=== PATIENT | female | born 1965 | race Caucasian/White ===

== ENCOUNTER 2023-10-06 07:35 | Day surgery (SDC) | payer OTHER, SELFPAY ==
[2023-09-10 13:20] VITALS: BMI 29.4
[2023-09-10 13:26] LABS: % Basophils 0.9 % (0-2); % Eosinophils 3.2 % (0-6); % Immature Granulocytes 0.2 % (0-0.5); % Lymphocytes 44.3 % (20.5-51.1); % Monocytes 7.1 % (1.7-9.3); % Neutrophils 44.3 % (42.2-75.2); Absolute Basophils 0.1 10^3/uL (0-0.2); Absolute Eosinophils 0.2 10^3/uL (0-0.7); Absolute Lymphocytes 2.5 10^3/uL (1.2-3.4); Absolute Monocytes 0.4 10^3/uL (0.1-0.6); Absolute Neutrophils 2.5 10^3/uL (1.4-6.5); Hematocrit 41.8 % (37.0-47.0); Hemoglobin 14.7 g/dL (12.0-16.0); Mean Corp Hgb Conc. 35.2 g/dL (33.0-37.0); Mean Corpuscular Hgb 28.5 pg (27.0-31.0); Mean Platelet Volume 10.9 fL (7.4-10.4); Nucleated Red Blood Cells % 0 %; Platelet Count 213 10^3/uL (130-400); Red Blood Cell Count 5.16 10^6/uL (4.20-5.40); Red Cell Dist. Width 13.7 % (11.5-14.5); White Blood Cell Count 5.6 10^3/uL (4.8-10.8)
[2023-09-10 13:38] LABS: ALT (SGPT) 26 U/L (0-35); AST (SGOT) 29 U/L (14-36); Albumin 4.4 g/dl (3.5-5.0); Alkaline Phosphatase 82 U/L (38-126); Blood Urea Nitrogen 18 mg/dl (7-17); Calcium 10.1 mg/dl (8.4-10.2); Carbon Dioxide 25 mmol/L (22-30); Chloride 102 mmol/L (98-107); Estimated Creatinine Clearance 71 ml/min; Glucose 164 mg/dl (70-99); Magnesium 1.6 mg/dl (1.6-2.3); Potassium 4.2 mmol/L (3.5-5.1); Sodium 137 mmol/L (135-145); Total Bilirubin 1.3 mg/dl (0.2-1.3); eGFR > 60.00
[2023-09-10 13:42] LABS: INR 1.07; PT 13.7 Sec (11.4-14.6)
[2023-10-06] VITALS (10 sets, daily range): BP systolic 90–116; BP diastolic 48–87
[2023-10-06 10:02] LABS: Glucose - Point of Care 140 mg/dl (70-99)
[2023-10-06 12:47] LABS: ACT-LR - POC 255 Seconds (116-155)
[2023-10-06 13:00] LABS: Glucose - Point of Care 97 mg/dl (70-99)
[2023-10-06 13:03] LABS: ACT-LR - POC 324 Seconds (116-155)
[2023-10-06 13:28] LABS: ACT-LR - POC 310 Seconds (116-155)
[2023-10-06 14:00] LABS: ACT-LR - POC 329 Seconds (116-155)
[2023-10-06 14:13] LABS: ACT-LR - POC 178 Seconds (116-155)
--- NOTE | 2023-10-06 14:48 | ITS.CL.ABL ---
Complaint Operator - Ablation
Ablation
Procedure Report:
Primary Platform Inspector: Jonh Sanchez MD
Procedure Date: 10/06/2023
Patient History:
Patient is a pleasant 58-year-old female with past medical history significant for hypertension, dyslipidemia, persistent atrial fibrillation, diabetes mellitus type 2, and hypothyroidism.
Indication:
Symptomatic persistent atrial fibrillation
Early recurrence after cardioversion/failure of anglican of sinus rhythm cardioversion
Arrhythmia Specific History:
Prior Medical Therapies for Rate and Rhythm Control:
X Beta-jewel
[ ] Calcium channel-jewel
[ ] Amiodarone
[ ] Dronederone
[ ] Sotalol
[ ] Flecainide
[ ] Dofetilide
[ ] Options limited by bradycardia
[ ] Options limited by comorbid renal disease
Prior Procedural Therapies for AF/AFL:
X Cardioversion
[ ] Pulmonary Vein Isolation
[ ] Posterior Wall Isolation
[ ] Additional lines (Specify)
[ ] Surgical Gonzalez-MAZE or PVI (Specify)
Procedure Performed:
X AF ablation procedure (59993) -- includes LA/CS pacing, trans-septal, 3D mapping, + ICE
[ ] +IV drug (55117)
[ ] +Other Arrhythmia (73055)
[ ] +Other AF Line/ablation (09098)
Risks and expected recovery has been explained in detail. Alternative options have been explored, and in a shared-decision making fashion we have decided that this was the most appropriate procedure.
Method
NPO status confirmed. Grounding pad applied. Defibrillator pads applied. Continuous surface ECG, pulse oximetry, and blood pressure were monitored. Procedure was performed under general anesthesia, with anesthesia services.
Both groins were clipped, prepped with Chloraprep, and draped in sterile fashion. Time out was called. Local anesthesia administered with bupivacaine. The right and left femoral veins were accessed for catheter placement, using ultrasound guidance,
micro-puncture needle/wire, and modified seldinger technique. 3 sheaths were placed. The following catheters were used:
[ ] Tacticath SE (D/F Curve) ablation catheter
X Viewflex 9Fr ICE catheter
X Inquiry decapolar 6Fr diagnostic catheter
[ ] CRD Hex 6Fr
X Arctic Front Advance Cryoballoon (28mm)
X Achieve Advance mapping catheter (15mm)
[ ] Acuson AcuNav 8 Fr ICE catheter
[ ]Other: [ ]
Intracardiac ultrasound (ICE) was carefully advanced into the right atrium to guide sheath placement over a J-wire, catheter placement, guide trans-septal puncture, identify potential complications, identify anatomic structures and ensure proper
contact between ablation catheter and tissue. Intracardiac ultrasound demonstrated trace pericardial effusion which remained unchanged throughout the entirety of the procedure and post procedure.
Heparin was given prior to trans-septal puncture. Heparin was given to achieve and maintain a target ACT of 300-400 seconds.
Trans-septal access was performed under ICE guidance. The trans-septal puncture was performed with a SafeSept wire through a Brockenbrough needle assembly. The wire was visualized as it entered the LSPV. The Brockenbrough needle assembly, SafeSept
wire and sheath dilator were removed under negative pressure. The Protrack pigtail wire was advanced through the sheath into the left atrium with position confirmed on ICE and fluoroscopy. The fixed curve long sheath was exchanged from the steerable
sheath over the Protrack wire and was advanced into the LA and positioned at the mitral annulus.
ICE and 3D mapping was performed to identify relevant cardiac structures. A careful 3D map was created to assess for regions of low-voltage and abnormal electrogram signals. Additional mapping was performed as outlined below. See synopsis for
details.
Cryoballoon ablation was performed using freeze/thaw/freeze at 2-4 minute intervals. Ablation targets included Cryoballoon temperatures of -30 degrees @ 30 seconds with goal temp typically between -40 and -50 degrees Celsius with time to effect when
measurable recorded to guide duration of application and need for repeat ablation in each vein. Esophageal temperature monitored throughout intervention. Phrenic nerve pacing performed during cryoapplication in the right pulmonary veins to monitor
for any evidence of PNI requiring application termination. See synopsis and procedure log for details.
Catheter and sheath were removed from the left atrium and post-ablation intracardiac echo evaluation was consistent with pre-ablation with no change to trace pericardial effusion and there is no left atrial thrombus or left ventricle thrombus seen.
Electrophysiology study was performed. Hemostasis was obtained with Vascade and with manual pressure. Protamine was used for reversal.
Estimated Blood Loss
5-10 mL
Complications
None
Procedure Synopsis:
The patient entered the room in AF. Three-dimensional mapping with EnSite system was performed with reconstruction of left atrium utilizing Achieve catheter. Intracardiac ultrasound and EnSite was used for guidance of ablation and placement of the
Cryoballoon. PV seal was confirmed with pressure waveform and ICE. Using the Achieve catheter, it was confirmed that pulmonary veins were active. All pulmonary veins were isolated successfully using Cryoballoon ablation using freeze/thaw/freeze
cycles at 2-4-minute intervals, with good [id number] of isolation. During the right-sided PV ablation, phrenic nerve pacing was performed to assess the phrenic nerve strength and the phrenic nerve was intact throughout the right-sided ablation.
SR restored with 200J synchronized cardioversion. Pre- and post-pulmonary vein recording and pacing from the Achieve catheter was utilized to ensure complete pulmonary vein isolation. LA voltage map created at procedure conclusion confirming WACA of
bilateral PVs.
Fluoroscopy: 9.7 minutes; 31.02 mGy; DAP 4.24
Contrast used: 0 cc
Baseline Intervals:
Rhythm: AF
QRS: 106 ms
QT: 350 ms
QTc: 451 ms
Post-Procedure Intervals:
IN: 164 ms
QRS: 106 ms
QT: 401 ms
QTc: 440 ms
A-A: 832 ms
R-R: 832 ms
AVWB: 400 ms
AERP: 600/290 ms
Recommendations
- Bedrest with straight-leg precautions as ordered
- Anticipate same day discharge if patient meeting clinical metrics
- Resume home medications as indicated
- Ok to resume anticoagulation tonight if patient and groin sites stable
- PPI daily for 30 days
- Plan for follow-up in office in 4-[address] Sanchez.
Sean Zurita DO
Clinical Cardiac Cashier [facility]
cc: Jonh Sanchez MD; RAMOS Henry
[2023-10-06 15:31] LABS: Glucose - Point of Care 147 mg/dl (70-99)
--- NOTE | 2023-10-06 16:38 | W.PN.UPDATE ---
Update Note
Progress Note Update
58 yo WF s/p PVI (Same day). She feels good, no cp, sob, darcie diet, voiding b/l groins c/d/i no HT, soft. EKG SR. She will continue OAC Eliquis dose at 8pm. Activity restrictions reviewed. She will f/u Dr. Sanchez in 2 mo. She is for d/c home after
530pm if groins stable.
Patient History:
Patient is a pleasant 58-year-old female with past medical history significant for hypertension, dyslipidemia, persistent atrial fibrillation, diabetes mellitus type 2, and hypothyroidism.
Indication:
Symptomatic persistent atrial fibrillation
Early recurrence after cardioversion/failure of nondenominational of sinus rhythm cardioversion
== END 2023-10-06 17:43 | disposition home or self-care (01) ==
LOC: CATH 07:35
PROVIDERS: ATTENDING PHYSICIAN Internal Medicine Cardiovascular Disease; FAMILY PHYSICIAN Nurse Practitioner; OTHER PHYSICIAN Internal Medicine Cardiovascular Disease
DX: I48.19 Other persistent atrial fibrillation (principal); E11.9 Type 2 diabetes mellitus without complications; E78.5 Hyperlipidemia, unspecified; I10 Essential (primary) hypertension; E89.0 Postprocedural hypothyroidism; R06.09 Other forms of dyspnea; K21.9 Gastro-esophageal reflux disease without esophagitis; Z87.19 Personal history of other diseases of the digestive system; K44.9 Diaphragmatic hernia without obstruction or gangrene; N20.0 Calculus of kidney; R74.01 Elevation of levels of liver transaminase levels; K74.00 Hepatic fibrosis, unspecified; G43.909 Migraine, unspecified, not intractable, without status migrainosus; R42 Dizziness and giddiness; M06.9 Rheumatoid arthritis, unspecified; M19.90 Unspecified osteoarthritis, unspecified site; D25.9 Leiomyoma of uterus, unspecified; Z85.850 Personal history of malignant neoplasm of thyroid; Z79.4 Long term (current) use of insulin; Z79.01 Long term (current) use of anticoagulants; Z79.85 Long-term (current) use of injectable non-insulin antidiabetic drugs; Z79.84 Long term (current) use of oral hypoglycemic drugs
CPT/HCPCS: C1766; C1894; C1730; C1893; C1892; 36415; 75572; 76937; 80053; 82962; 83735; 85025; 85347; 85610; 86850; 86900; 86901; 92960; 93005; 93656; C1760; Q9967